=== PATIENT | female | born 1985 | race Caucasian/White ===

== ENCOUNTER 2018-08-04 15:22 | Emergency (ER) | payer BC ==
--- NOTE | 2018-08-04 16:00 | UC ---
Complaint Female HPI - HPI Summary HPI Summary: started 2 days ago with nausea and stomachache. went to work today and started having urinary frequency, R lower abd pain occurred that radiated to back. never saw blood in urine, no hx kidney stone. she did have same symptoms in past that was dx as kidney infection that required hospitalization - History Of Current Complaint Chief Complaint: UCBackPain Stated Complaint: SIDE /ABD PAIN Time Seen by Provider: 08/04/18 15:46 Hx Obtained From: Patient Hx Last Menstrual Period: unknown ?: No Onset/Duration: Gradual Onset Timing: Intermittent Severity Initially: Moderate Severity Currently: Mild Pain Intensity: 3 Character: Sharp Aggravating Factor(s): Nothing Alleviating Factor(s): Nothing Associated Signs And Symptoms: Positive: Back Pain, Nausea. Negative: Fever, Vaginal Bleeding/Discharge, Vomiting(# Of Episodes =) Related Hx: Similar Episode/Dx as: - kidney infection - Allergies/Home Medications Allergies/Adverse Reactions: Allergies Allergy/AdvReac Type Severity Reaction Status Date / Time No Known Allergies Allergy Verified 08/04/18 15:38 Home Medications: Home Medications Levonorgestrel (Iud) [Mirena IUD] 20 mcg IU MONTHLY 08/04/18 [History Confirmed 08/04/18] PMH/Surg Hx/FS Hx/Imm Hx Previously Healthy: Yes - Surgical History Surgical History: None Surgery Procedure, Year, and Place: right wrist - Family History Known Family History: Negative: Hypertension, Diabetes - Social History Occupation: Employed Full-time Lives: With Family Alcohol Use: Occasionally Substance Use Type: None Smoking Status (MU): Former Smoker Review of Systems All Other Systems Reviewed And Are Negative: Yes Constitutional: Positive: Negative Skin: Positive: Negative ENT: Positive: Negative Respiratory: Positive: Negative Cardiovascular: Positive: Negative Gastrointestinal: Positive: Abdominal Pain, Nausea Genitourinary: Positive: Frequency. Negative: Dysuria, Hematuria Neurovascular: Positive: Negative Musculoskeletal: Positive: Negative Neurological: Positive: Negative Psychological: Positive: Negative Is Patient Immunocompromised?: No Physical Exam Triage Information Reviewed: Yes Appearance: Well-Appearing, No Pain Distress, Well-Nourished Vital Signs: Initial Vital Signs Temp 97.8 F 08/04/18 15:33 Pulse 82 08/04/18 15:33 Resp 18 08/04/18 15:33 BP 131/76 08/04/18 15:33 Pulse Ox 98 08/04/18 15:33 Vital Signs Reviewed: Yes Respiratory Exam: Normal Respiratory: Positive: Lungs clear Cardiovascular Exam: Normal Cardiovascular: Positive: RRR Abdomen Description: Positive: Nontender, No Organomegaly, Soft. Negative: CVA Tenderness (R), CVA Tenderness (L), McBurney's Point Tenderness, Peritoneal Signs Bowel Sounds: Positive: Present Neurological Exam: Normal Psychological Exam: Normal Skin Exam: Normal Skin: Negative: Rashes Complaint Female Dx - Differential Dx/Diagnosis Differential Diagnosis/HQI/PQRI: Appendicitis, , Renal Colic, Urinary Tract Infection Provider Diagnosis: UTI (urinary tract infection) Discharge - Sign-Out/Discharge Documenting (check all that apply): Patient Departure All imaging exams completed and their final reports reviewed: No Studies - Discharge Plan Condition: Good Disposition: HOME Prescriptions: Ciprofloxacin TAB* [Cipro 500 MG TAB*] 500 mg PO BID #18 tab Patient Education Materials: Urinary Tract Infection in Women (ED) Forms: *Work Release Referrals: No Primary Care Phys,NOPCP [Primary Care Provider] - Additional Instructions: Drink plenty of fluids and rest take cipro as directed report to ER if your symptoms worsen at anytime - Billing Disposition and Condition Condition: GOOD Disposition: Home
[2018-08-04] MEDS ORDERED: Ciprofloxacin TAB* 500 MG PO ONE (16:04)
--- NOTE | 2018-08-07 11:13 | UC ---
- Progress Note Progress Note: PATIENT CALLED STATING THAT HER SYMPTOMS HAVE NOT IMPROVED. SHE IS ON DAY 4 OF C[facility]RO FOR UTI AND PATIENT REPORTS SHE STILL HAS SHARP ABDOMINAL PAIN AND NAUSEA. FEELS SHE MIGHT ACTUALLY BE GETTING WORSE THE FLANK PAIN IS NOW BILATERAL. STATES SHE HAS BEEN HOSPITALIZED IN THE ICU IN THE PAST FOR UTI THAT FAILED OUTPATIENT TREATMENT. BASED ON HER CULTURE RESULTS OF PANSENSITIVE E. COLI SHE SHOULD HAVE FELT BETTER WITH CIPRO. DISCUSSED WITH PATIENT PRESENTING TO THE ER FOR FURTHER EVALUATION OF HER WORSENING SYMPTOMS VERSUS TRYING A SECOND OUTPATIENT ANTIBIOTIC TO SEE IF THIS IS MORE EFFECTIVE. PATIENT OPTS TO TRY NEW ANTIBIOTIC INSTEAD OF GOING TO THE ER AT PRESENT. I STRESSED TO THE PATIENT THAT THERE IS NO GUARANTEE THAT THE SECOND ANTIBIOTIC WILL WORK ANY BETTER THAN CIPRO. PATIENT VERBALIZES UNDERSTANDING AND CONTINUES TO REQUEST A SECONDARY ANTIBIOTIC. SHE STATES SHE WILL PRESENT TO THE ER WITHOUT FAIL IF HER SYMPTOMS DO NOT IMPROVE OR IF THEY WORSEN OVER THE NEXT 1-2 DAYS. ERX SENT TO [facility] IN [place]. Course/Dx - Diagnoses Provider Diagnoses: UTI (urinary tract infection) Discharge - Sign-Out/Discharge Documenting (check all that apply): Post-Discharge Follow Up All imaging exams completed and their final reports reviewed: No Studies - Discharge Plan Condition: Good Disposition: HOME Prescriptions: Ciprofloxacin TAB* [Cipro 500 MG TAB*] 500 mg PO BID #18 tab Sulfamethox/Trimethoprim DS* [Bactrim DS 800/160 TAB*] 1 tab PO BID #10 tab Patient Education Materials: Urinary Tract Infection in Women (ED) Forms: *Work Release Referrals: No Primary Care Phys,NOPCP [Primary Care Provider] - Additional Instructions: Drink plenty of fluids and rest take cipro as directed report to ER if your symptoms worsen at anytime - Billing Disposition and Condition Condition: GOOD Disposition: Home
== END 2018-08-04 16:24 | disposition home or self-care (01) ==
LOC: UCEAST 15:22
DX: N39.0 Urinary tract infection, site not specified (principal); Z87.891 Personal history of nicotine dependence
CPT/HCPCS: 81003; 84702; 87077; 87086; 87186; 99202; A9270-GY; G0463